=== PATIENT | female | born 1950 | race Caucasian/White ===

== ENCOUNTER → 2017-02-06 | Outpatient (CLI) | payer OTHER ==
[~2017-02-06] MED LIST: ADVIL,NUPRIN,M200 MG PO; ASPIRIN EC81 M1 PO; ATORVASTATIN CA80 MG PO; BACTRIM,SEPT1 TABLET PO; BENZTROPINE ME0.5 MG PO; CELEXA20 MG PO; COGENTIN0.5 MG PO; CRESTOR40 MG PO; LO-DOSE ASPIRIN81 M1 PO; LORAZEPAM1 MG PO; METFORMIN HCL500 MG PO; MIRALAX17 GM PO; MIRALAX255 GM PO; RANITIDINE HCL150 MG PO; TOPROL XL25 MG PO; TRILAFON4 MG PO; TRILAFON8 MG PO; VITAMIN D1000 UNIT PO; VYTORIN 10-801 EACH PO; ZYPREXA20 MG PO; ZYPREXA5 MG PO
== END | disposition home or self-care (01) ==
DX: R13.10 Dysphagia, unspecified (principal); R05 Cough; Z87.821 Personal history of retained foreign body fully removed
CPT/HCPCS: 92611 GN